=== PATIENT | male | born 1980 | race Caucasian/White ===

== ENCOUNTER 2016-09-15 17:41 | Emergency (ER) | payer MEDICAID ==
[2016-09-15 18:00] VITALS: PULSE 70; O2SAT 97
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
[2016-09-15 20:18] LABS: BASO # 0.1 K/uL (0.0-0.2); BASO % 1.1 % (0.0-2.0); EOS # 0.1 K/uL (0.0-0.7); EOS % 1.4 % (0.0-4.0); HEMATOCRIT 48.1 % (35.0-51.0); LYMPH # 1.6 K/uL (1.0-4.3); LYMPH % 19.7 % (20.0-40.0); MEAN CELL VOLUME 86.3 fL (80.0-94.0); MEAN CORPUSCULAR HEMOGLOBIN 29.7 pg (27.0-31.0); MEAN CORPUSCULAR HGB CONC 34.5 g/dL (33.0-37.0); MONO # 0.5 K/uL (0.0-0.8); NRBC % 0.2 % (0.0-2.0); RED CELL DISTRIBUTION WIDTH 13.4 % (11.5-14.5); WHITE BLOOD COUNT 8.1 K/uL (4.8-10.8)
[2016-09-15 20:19] LABS: CHLORIDE 100 mmol/L (98-107)
[2016-09-15 20:20] LABS: POTASSIUM 3.9 mmol/L (3.6-5.2); RBC URINE 1 /hpf (0-3); SODIUM 142 mmol/L (132-148); URINE BILIRUBIN NEGATIVE (NEGATIVE); URINE BLOOD NEGATIVE (NEGATIVE); URINE COLOR Yellow (YELLOW); URINE GLUCOSE (UA) NORMAL (Normal); URINE KETONE TRACE mg/dL (NEGATIVE); URINE LEUKOCYTE ESTERASE NEG Leu/uL (Negative); URINE PROTEIN NEGATIVE (NEGATIVE); URINE UROBILINOGEN NORMAL mg/dL (0.2-1.0); WBC URINE < 1 /hpf (0-5)
[2016-09-15 20:22] LABS: ALB/GLOB RATIO 1.5 (1.0-2.1); ALKALINE PHOSPHATASE 95 U/L (38-126); ALT/SGPT 48 U/L (21-72); AST/SGOT 26 U/L (17-59); BLOOD UREA NITROGEN 13 mg/dL (9-20); CARBON DIOXIDE 24 mmol/L (22-30); GFR AFRICAN-AMERICAN > 60; GLUCOSE,RANDOM 86 mg/dL (75-110); TOTAL PROTEIN 7.9 g/dL (6.3-8.3)
[2016-09-15 20:23] LABS: ALCOHOL SERUM < 10 mg/dl (0-10); CALCIUM 9.3 mg/dl (8.6-10.4)
[2016-09-15 23:01] VITALS: BP 127/73; RESP 16; TEMP 98.4
== END 2016-09-15 23:00 | disposition home or self-care (01) ==
LOC: C.ER 17:41
DX: R45.851 Suicidal ideations (principal)

== ENCOUNTER 2017-02-07 15:43 | Emergency (ER) | payer MEDICAID ==
[2017-02-07] MEDS ORDERED: Sodium Chloride 0.9% 1,000 ML IV ONE (16:32)
[2017-02-07] MEDS ORDERED: Apap-Butalbital-Caffeine 325-50-40mg Tab PO STA (16:34)
--- NOTE | 2017-02-07 16:43 | C.PDOC ---
History Of Present Illness Jerome Guzman, a 36 year old male, who has a past medical history of psychiatric illness presents to the ED complaining of a headache in the right occipital area x3 days. The patient states that he took multiple doses of tylenol and motrin without relief. The patient reports that he does not have a history of headaches. PMD: Dr. Solo Time Seen by Provider: 02/07/17 16:13 Chief Complaint (Nursing): Headache History Per: Patient History/Exam Limitations: no limitations Onset/Duration Of Symptoms: Days (x3 days) Current Symptoms Are (Timing): Still Present Quality: Pressure Associated Symptoms: Nausea Recent travel outside of the [place]: No Past Medical History Reviewed: Historical Data, Nursing Documentation, Vital Signs Vital Signs: Last Vital Signs Temp 98 F 02/07/17 15:47 Pulse 85 02/07/17 15:47 Resp 20 02/07/17 15:47 BP 132/71 02/07/17 15:47 Pulse Ox 96 02/07/17 17:37 - Medical History PMH: Back Problems, Bipolar Disorder, Depression, Schizophrenia Denies: Diabetes, Hepatitis, HIV, HTN, Seizures, Sexually Transmitted Disease Surgical History: No Surg Hx - [facility] Procedures APPLICATION OF SPLINT (04/12/14) Family History: States: Unknown Family Hx - Social History Hx Tobacco Use: Yes Hx Alcohol Use: No Hx Substance Use: Yes (MARIJUANA) - Immunization History Hx Tetanus Toxoid Vaccination: No Hx Influenza Vaccination: No Hx Pneumococcal Vaccination: No Review Of Systems Except As Marked, All Systems Reviewed And Found Negative. Constitutional: Negative for: Fever, Chills Neurological: Positive for: Headache (Headache in right occipital area.) Physical Exam - Physical Exam Appears: Well, Non-toxic, No Acute Distress Skin: Normal Color, Warm, Dry Eye(s): bilateral: Normal Inspection, PERRL, EOMI Ear(s): Bilateral: Normal Nose: Normal Oral Mucosa: Moist Tongue: Normal Appearing Lips: Normal Appearing Teeth: Normal Dentition Gingiva: Normal Appearing Throat: Normal Neck: Normal, Normal ROM, Supple Cardiovascular: Rhythm Regular, No Murmur Respiratory: Normal Breath Sounds, No Rales, No Rhonchi, No Wheezing Gastrointestinal/Abdominal: Normal Exam, Bowel Sounds, Soft, No Tenderness, No Guarding, No Rebound Back: Normal Inspection, No CVA Tenderness Extremity: Normal ROM, No Tenderness, No Deformity, No Swelling Neurological/Psych: Oriented x3, Normal Speech, Normal Cognition Gait: Steady ED Course And Treatment - Laboratory Results Result Diagrams: 02/07/17 16:58 02/07/17 16:58 Lab Interpretation: Normal O2 Sat by Pulse Oximetry: 96 (RA) Pulse Ox Interpretation: Normal - CT Scan/US No standard instances Other Rad Studies (CT/US): Read By Radiologist, Radiology Report Reviewed CT/US Interpretation: FINDINGS: HEMORRHAGE: No intracranial hemorrhage. BRAIN : No mass effect or edema. No atrophy or chronic microvascular ischemic changes. VENTRICLES: Unremarkable. No hydrocephalus. CALVARIUM: Unremarkable. PARANASAL SINUSES: Unremarkable as visualized. No significant inflammatory changes. MASTOID AIR CELLS: Unremarkable as visualized. No inflammatory changes. OTHER FINDINGS: None. IMPRESSION: No evidence of acute intracranial hemorrhage intracranial collection mass effect or midline shift. Significant interval change since the previous exam noted. Left frontal scalp soft tissue swelling. Progress Note: Treated with IVF NSS and fiorcet x 1. On re-evaluation feeling better, neuro intact. ambulating with steady gait Reassessment Condition: Improved Medical Decision Making Medical Decision Makin Initial Impression: 36 year old male presenting with right occipital headache Initial Plan: * CT head w/o contrast * Acetaminophen * CBC * NS 1000mls IV 1000mls/hr * Urinalysis * Reevaluation Disposition Counseled Patient/Family Regarding: Studies Performed, Diagnosis, Need For Followup, Rx Given - Disposition Referrals: Mansi Solo MD [Staff Provider] - Disposition: HOME/ ROUTINE Disposition Time: 18:00 Condition: STABLE Additional Instructions: fo;;ow up with PMD for further evaluation Prescriptions: Acetaminophen/Butalbital/Caf [Fioricet] 1 tab PO TID PRN #10 tab PRN Reason: Headache Instructions: General Headache (ED) Forms: [facility] (Bulgarian) - POA Present On Arrival: None - Clinical Impression Clinical Impression: Headache - Scribe Statement The provider has reviewed the documentation as recorded by the Scribnori Ray All medical record entries made by the Scribe were at my direction and personally dictated by me. I have reviewed the chart and agree that the record accurately reflects my personal performance of the history, physical exam, medical decision making, and the department course for this patient. I have also personally directed, reviewed, and agree with the discharge instructions and disposition.
[2017-02-07] MEDS ORDERED: Apap-Butalbital-Caffeine 325-50-40mg Tab ONE (16:59)
[2017-02-07] MEDS ORDERED: Sodium Chloride 0.9% 1,000 ML ONE (16:59)
[2017-02-07 17:01] LABS: BASO # 0.1 K/uL (0.0-0.2); BASO % 1.4 % (0.0-2.0); EOS # 0.1 K/uL (0.0-0.7); EOS % 1.1 % (0.0-4.0); HEMATOCRIT 46.3 % (35.0-51.0); LYMPH # 1.4 K/uL (1.0-4.3); LYMPH % 20.1 % (20.0-40.0); MEAN CORPUSCULAR HEMOGLOBIN 30.1 pg (27.0-31.0); MEAN CORPUSCULAR HGB CONC 34.6 g/dL (33.0-37.0); MEAN PLATELET VOLUME 9.3 fL (7.2-11.7); MONO # 0.6 K/uL (0.0-0.8); MONO % 8.4 % (0.0-10.0); NRBC % 0.1 % (0.0-2.0); RED CELL DISTRIBUTION WIDTH 13.9 % (11.5-14.5); WHITE BLOOD COUNT 7.2 K/uL (4.8-10.8)
[2017-02-07 17:12] LABS: RBC URINE < 1 /hpf (0-3); URINE BILIRUBIN NEGATIVE (NEGATIVE); URINE BLOOD NEGATIVE (NEGATIVE); URINE COLOR Yellow (YELLOW); URINE GLUCOSE (UA) NORMAL (Normal); URINE HYALINE CAST 0-2 /lpf (0-2); URINE KETONE NEGATIVE (NEGATIVE); URINE LEUKOCYTE ESTERASE NEG Leu/uL (Negative); URINE PROTEIN NEGATIVE (NEGATIVE); URINE UROBILINOGEN NORMAL mg/dL (0.2-1.0); WBC URINE < 1 /hpf (0-5)
[2017-02-07 17:17] LABS: CHLORIDE 100 mmol/L (98-107); POTASSIUM 4.4 mmol/L (3.6-5.2); SODIUM 140 mmol/L (132-148)
[2017-02-07 17:19] LABS: ALB/GLOB RATIO 1.4 (1.0-2.1); AST/SGOT 34 U/L (17-59); BILIRUBIN,TOTAL 0.8 mg/dL (0.2-1.3); CARBON DIOXIDE 28 mmol/L (22-30); GFR AFRICAN-AMERICAN > 60; TOTAL PROTEIN 7.3 g/dL (6.3-8.3)
[2017-02-07 17:20] LABS: ALKALINE PHOSPHATASE 92 U/L (38-126); ALT/SGPT 46 U/L (21-72); BLOOD UREA NITROGEN 13 mg/dL (9-20); CALCIUM 9.5 mg/dl (8.6-10.4); GLUCOSE,RANDOM 76 mg/dL (75-110)
--- NOTE | 2017-02-07 17:32 | CT ---
PROCEDURE: CT HEAD WITHOUT CONTRAST. HISTORY: R/O Bleed COMPARISON: Comparison is made to the previous study dated 03/30/2014 TECHNIQUE: Axial computed tomography images were obtained through the head/brain without intravenous contrast. Radiation dose: Total exam DLP = 981.98 mGy-cm. This CT exam was performed using one or more of the following dose reduction techniques: Automated exposure control, adjustment of the mA and/or kV according to patient size, and/or use of iterative reconstruction technique. FINDINGS: HEMORRHAGE: No intracranial hemorrhage. BRAIN: No mass effect or edema. No atrophy or chronic microvascular ischemic changes. VENTRICLES: Unremarkable. No hydrocephalus. CALVARIUM: Unremarkable. PARANASAL SINUSES: Unremarkable as visualized. No significant inflammatory changes. MASTOID AIR CELLS: Unremarkable as visualized. No inflammatory changes. OTHER FINDINGS: None. IMPRESSION: No evidence of acute intracranial hemorrhage intracranial collection mass effect or midline shift. Significant interval change since the previous exam noted. Left frontal scalp soft tissue swelling.
[2017-02-07 17:55] VITALS: BP 122/76; PULSE 75; RESP 18; TEMP 97.8; O2SAT 99
== END 2017-02-07 18:10 | disposition home or self-care (01) ==
LOC: C.ER 15:43
DX: R51 Headache (principal)
CPT/HCPCS: 70450; 80053; 80329; 81001; 85025; 96360; 99285; J7040

== ENCOUNTER 2017-08-04 11:51 | Emergency (ER) | payer MEDICAID ==
--- NOTE | 2017-08-04 14:59 | C.PDOC ---
History Of Present Illness 37 year old male presents to the ED for evaluation of generalized body aches, nausea, vomiting and dizziness which began several days ago. Patient reports he is currently nauseous and denies fever, chills, diarrhea, abdominal pain. Time Seen by Provider: 08/04/17 14:34 Chief Complaint (Nursing): Flu-like Symptoms History Per: Patient History/Exam Limitations: no limitations Onset/Duration Of Symptoms: Days Current Symptoms Are (Timing): Still Present Quality Of Discomfort: Aching Associated Symptoms: Nausea, Vomiting. denies: Fever, Chills, Diarrhea Additional History Per: Patient Past Medical History Reviewed: Historical Data, Nursing Documentation, Vital Signs Vital Signs: Last Vital Signs Temp 98.7 F 08/04/17 15:49 Pulse 64 08/04/17 15:49 Resp 18 08/04/17 15:49 BP 109/61 08/04/17 15:49 Pulse Ox 96 08/04/17 16:27 - Medical History PMH: Back Problems, Bipolar Disorder, Depression, Schizophrenia Denies: Diabetes, Hepatitis, HIV, HTN, Seizures, Sexually Transmitted Disease Surgical History: No Surg Hx - [facility] Procedures APPLICATION OF SPLINT (04/12/14) Family History: States: Unknown Family Hx - Social History Hx Tobacco Use: Yes Hx Alcohol Use: No Hx Substance Use: Yes (MARIJUANA) - Immunization History Hx Tetanus Toxoid Vaccination: No Hx Influenza Vaccination: No Hx Pneumococcal Vaccination: No Review Of Systems Constitutional: Negative for: Fever Gastrointestinal: Positive for: Nausea, Vomiting. Negative for: Abdominal Pain , Diarrhea Neurological: Positive for: Dizziness Physical Exam - Physical Exam Appears: Non-toxic, No Acute Distress Skin: Normal Color, Warm, Dry Head: Atraumatic, Normacephalic Eye(s): bilateral: Normal Inspection Ear(s): Bilateral: Normal Nose: Normal, No Discharge Oral Mucosa: Moist Neck: Supple Chest: Symmetrical, No Deformity, No Tenderness Cardiovascular: Rhythm Regular, No Murmur Respiratory: Normal Breath Sounds, No Rales, No Rhonchi, No Wheezing Gastrointestinal/Abdominal: Soft, No Tenderness, No Guarding, No Rebound Extremity: Normal ROM, Capillary Refill (less than 2 seconds ) Neurological/Psych: Oriented x3, Normal Speech, Normal Cognition ED Course And Treatment O2 Sat by Pulse Oximetry: 96 (on RA) Pulse Ox Interpretation: Normal Progress Note: Motrin PO and Zofran PO administered. Reevaluation Time: 16:26 Reassessment Condition: Improved (TOLERATING PO; REQUESTING DC HOME) Disposition Counseled Patient/Family Regarding: Diagnosis, Need For Followup, Rx Given - Disposition Referrals: YOUR,PMD [Other] Disposition: HOME/ ROUTINE Disposition Time: 16:25 Condition: IMPROVED Prescriptions: Ondansetron [Zofran Odt] 4 mg PO TID PRN #9 odt PRN Reason: Nausea/Vomiting Instructions: Acute Nausea and Vomiting (ED) Forms: [facility] (Swedish), Work Excuse - Clinical Impression Clinical Impression: Vomiting - Scribe Statement The provider has reviewed the documentation as recorded by the Scribe (Kiya Ramirez) Provider Attestation: All medical record entries made by the Scribe were at my direction and personally dictated by me. I have reviewed the chart and agree that the record accurately reflects my personal performance of the history, physical exam, medical decision making, and the department course for this patient. I have also personally directed, reviewed, and agree with the discharge instructions and disposition.
[2017-08-04 15:50] VITALS: BP 109/61; PULSE 64; RESP 18; TEMP 98.7
[2017-08-04 16:27] VITALS: O2SAT 96
== END 2017-08-04 16:56 | disposition home or self-care (01) ==
LOC: C.ER 11:51
DX: R11.10 Vomiting, unspecified (principal)

== ENCOUNTER 2018-04-15 10:39 | Emergency (ER) | payer MEDICAID ==
[2018-04-15 10:59] VITALS: BMI 34.4
[2018-04-15 11:07] VITALS: BP 127/82; PULSE 79; TEMP 98.5; O2SAT 98
[2018-04-15] MEDS ORDERED: Sodium Chloride 0.9% 1,000 ML IV ONE (11:21)
[2018-04-15] MEDS ORDERED: Apap-Butalbital-Caffeine 325-50-40mg Tab PO STA (11:22)
[2018-04-15] MEDS ORDERED: Apap-Butalbital-Caffeine 325-50-40mg Tab ONE (11:57)
--- NOTE | 2018-04-15 13:18 | C.PDOC ---
History Of Present Illness 37 y/o male presents to the ER complaining of right sided occipital headache since yesterday. Patient states that the pain has been occurring intermittently for the past 5 years, he reports that his current episode started yesterday. Patient notes that he took OTC Motrin with no significant relief. He has been evaluated for these symptoms in the past, however he never followed up with a specialist. Denies having visual changes, light sensation, changes in sensation, neck pain, nausea, and vomiting. Time Seen by Provider: 04/15/18 11:08 Chief Complaint (Nursing): Back Pain History Per: Patient History/Exam Limitations: no limitations Onset/Duration Of Symptoms: Days Current Symptoms Are (Timing): Still Present Severity: Moderate Past Medical History Reviewed: Historical Data, Nursing Documentation, Vital Signs Vital Signs: Last Vital Signs Temp 98.5 F 04/15/18 11:05 Pulse 79 04/15/18 11:05 Resp 18 04/15/18 11:05 BP 127/82 04/15/18 11:05 Pulse Ox 98 04/15/18 11:05 - Medical History PMH: Back Problems, Bipolar Disorder, Depression, Schizophrenia Denies: Diabetes, Hepatitis, HIV, HTN, Seizures, Sexually Transmitted Disease Surgical History: No Surg Hx - [facility] Procedures APPLICATION OF SPLINT (04/12/14) Family History: States: No Known Family Hx - Social History Hx Tobacco Use: Yes Hx Alcohol Use: Yes Hx Substance Use: Yes - Immunization History Hx Tetanus Toxoid Vaccination: No Hx Influenza Vaccination: Yes (2018) Hx Pneumococcal Vaccination: No Review Of Systems Except As Marked, All Systems Reviewed And Found Negative. Constitutional: Negative for: Fever, Chills Eyes: Negative for: Vision Change Gastrointestinal: Negative for: Nausea, Vomiting Musculoskeletal: Negative for: Neck Pain Neurological: Positive for: Headache Physical Exam - Physical Exam Appears: Non-toxic, No Acute Distress Skin: Normal Color, Warm, Dry Head: Normacephalic, Tenderness (tenderness to the right occipital scalp), Other ((+) left parietal 2 cm mobile mass, no swelling, no tenderness, no erythema - pt notes he has had it for "years") Eye(s): bilateral: Normal Inspection, PERRL, EOMI Ear(s): Bilateral: Normal Nose: Normal Oral Mucosa: Moist Throat: Normal, No Erythema, No Exudate Neck: Normal, Normal ROM, Supple Chest: Symmetrical Cardiovascular: Rhythm Regular Respiratory: Normal Breath Sounds, No Rales, No Rhonchi, No Wheezing Extremity: Normal ROM Neurological/Psych: Oriented x3, Normal Speech, Normal Cognition, Normal Cranial Nerves (2-12 grossly intact) Gait: Steady ED Course And Treatment O2 Sat by Pulse Oximetry: 98 (RA) Pulse Ox Interpretation: Normal - CT Scan/US CT-Head Other Rad Studies (CT/US): Read By Radiologist, Radiology Report Reviewed CT/US Interpretation: Date of service: 04/15/2018. PROCEDURE: CT HEAD WITHOUT CONTRAST. HISTORY: pain. COMPARISON: Noncontrast head CT performed 02/07/17. TECHNIQUE: Axial computed tomography images were obtained through the head/brain without intravenous contrast. Radiation dose: Total exam DLP = 1236.14 mGy-cm. This CT exam was performed using one or more of the following dose reduction techniques: Automated exposure control, adjustment of the mA and/or kV according to patient size, and/or use of iterative reconstruction technique. FINDINGS: HEMORRHAGE: No intracranial hemorrhage. BRAIN: No mass effect or edema. No atrophy or chronic microvascular ischemic changes. VENTRICLES: No hydrocephalus. CALVARIUM: Unremarkable. PARANASAL SINUSES: Unremarkable as visualized. No significant inflammatory changes. MASTOID AIR CELLS: Unremarkable as visualized. No inflammatory changes. OTHER FINDINGS: 17 x 11 mm left frontal parietal scalp abnormality, possibly age indeterminate hematoma. IMPRESSION: No acute intracranial pathology identified. Interval development of 17 x 11 mm left frontal parietal scalp abnormality, possibly age indeterminate hematoma. Correlate with physical exam and clinical history. Progress Note: Patient treated with Tylenol PO, Toradol IV, and IV Fluids. Prev ious visit evaluated, pt was seen for same symptoms last year. CT showing left parietal abnormality appears chronic and noninfectious. On reassessment, patient is resting comfortably, is tolerating PO, and pain has improved. Patient has no neurologic deficit, photophobia, rash, fever, or nuchal rigidity. Patient was instructed to follow up with physician/clinic in 1-2 days. Disposition - Disposition Referrals: Anatoly Armenta MD [Staff Provider] - Disposition: HOME/ ROUTINE Disposition Time: 13:24 Condition: STABLE Additional Instructions: Follow up with your primary medical doctor or clinic in 2-5 days for further evaluation. Take medications as prescribed. Return to the emergency department at any time if symptoms persist or worsen. 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 - Scribe Statement The provider has reviewed the documentation as recorded by the [place] Alfaro Provider Attestation All medical record entries made by the Suryaibnori were at my direction and personally dictated by me. I have reviewed the chart and agree that the record accurately reflects my personal performance of the history, physical exam, medical decision making, and the department course for this patient. I have also personally directed, reviewed, and agree with the discharge instructions and disposition.
[2018-04-15 13:47] VITALS: RESP 20
== END 2018-04-15 13:46 | disposition home or self-care (01) ==
LOC: C.ER 10:39
DX: R51 Headache (principal)
CPT/HCPCS: 70450; 96361; 96374; 99284; J1885; J7030

== ENCOUNTER 2018-06-07 14:14 | Emergency (ER) | payer MEDICAID ==
[2018-06-07 14:14] VITALS: BMI 34.4
[2018-06-07 14:34] VITALS: RESP 18
--- NOTE | 2018-06-07 15:40 | RAD ---
Date of service: 06/07/2018 HISTORY: cough r/o infiltrate COMPARISON: Chest 10/01/2013. TECHNIQUE: Chest PA and lateral FINDINGS: LUNGS: No active pulmonary disease. PLEURA: No significant pleural effusion identified. No pneumothorax apparent. CARDIOVASCULAR: No aortic atherosclerotic calcification present. Normal cardiac size. No pulmonary vascular congestion. OSSEOUS STRUCTURES: No significant abnormalities. VISUALIZED UPPER ABDOMEN: Normal. OTHER FINDINGS: None. IMPRESSION: No active disease.
[2018-06-07 16:32] VITALS: BP 122/74; PULSE 75; TEMP 98.7; O2SAT 97
--- NOTE | 2018-06-07 18:39 | C.PDOC ---
History Of Present Illness 38 y/o male presents to the ED complaining of bodyaches and cough for 2 days. He denies any fever, nausea, vomiting, or difficulty breathing. No recent travel. No sick contacts. Patient admits he did not receive flu shot this year. Patient is a non-smoker. Time Seen by Provider: 06/07/18 14:32 Chief Complaint (Nursing): Cough, Cold, Congestion History Per: Patient History/Exam Limitations: no limitations Onset/Duration Of Symptoms: Days (x2) Current Symptoms Are (Timing): Still Present Location Of Pain: Diffuse Myalgias Associated Symptoms: Cough, Sputum Past Medical History Reviewed: Historical Data, Nursing Documentation, Vital Signs Vital Signs: Last Vital Signs Temp 98.7 F 06/07/18 16:31 Pulse 75 06/07/18 16:31 Resp 18 06/07/18 16:31 BP 122/74 06/07/18 16:31 Pulse Ox 97 06/07/18 16:31 - Medical History PMH: Back Problems, Bipolar Disorder, Depression, Hypercholesterolemia, Schizophrenia Denies: Diabetes, Hepatitis, HIV, HTN, Seizures, Sexually Transmitted Disease Surgical History: No Surg Hx - [facility] Procedures APPLICATION OF SPLINT (04/12/14) Family History: States: Unknown Family Hx - Social History Hx Tobacco Use: Yes Hx Alcohol Use: Yes Hx Substance Use: Yes - Immunization History Hx Tetanus Toxoid Vaccination: No Hx Influenza Vaccination: Yes (2018) Hx Pneumococcal Vaccination: No Review Of Systems Except As Marked, All Systems Reviewed And Found Negative. Constitutional: Positive for: Other (Bodyaches). Negative for: Fever Cardiovascular: Negative for: Chest Pain Respiratory: Positive for: Cough. Negative for: Shortness of Breath, Wheezing Gastrointestinal: Negative for: Nausea, Vomiting Physical Exam - Physical Exam Appears: Non-toxic, No Acute Distress Skin: Normal Color, Warm, Dry Head: Atraumatic, Normacephalic Eye(s): bilateral: Normal Inspection, PERRL, EOMI Nose: Normal, No Discharge Oral Mucosa: Moist Neck: Normal ROM Chest: Symmetrical Cardiovascular: Rhythm Regular, No Murmur Respiratory: Normal Breath Sounds, No Rales, No Rhonchi, No Wheezing Gastrointestinal/Abdominal: Soft, No Tenderness, No Distention Extremity: Bilateral: Atraumatic, Normal Color And Temperature, Normal ROM Neurological/Psych: Oriented x3, Normal Speech ED Course And Treatment O2 Sat by Pulse Oximetry: 97 (RA) Pulse Ox Interpretation: Normal - Other Rad CXR X-Ray: Read By Radiologist Interpretation: Accession No. : [id number]. Patient Name / ID : FEMI ORTIZ / [id number]. Exam Date : 06/07/2018 14:38:49 ( Approved ). Study Comment : Sex / Age : M / 38Y. Creator : Cory Reid MD. Dictator : Cory Reid MD. Environmental Service Aide : Crystalizer Operator : Cory Reid MD. Approver2 : Report Date : 06/07/2018 15:37:07. My Comment : . Date of service: 06/07/2018. HISTORY: cough r/o infiltrate. COMPARISON: Chest 10/01/2013. TECHNIQUE: Chest PA and lateral. FINDINGS: LUNGS: No active pulmonary disease. PLEURA: No significant pleural effusion identified. No pneumothorax apparent. CARDIOVASCULAR: No aortic atherosclero tic calcification present. Normal cardiac size. No pulmonary vascular congestion. OSSEOUS STRUCTURES: No significant abnormalities. VISUALIZED UPPER ABDOMEN: Normal. OTHER FINDINGS: None. IMPRESSION: No active disease. Medical Decision Making Medical Decision Making: Impression: Cough, body aches, r/o pneumonia Initial Plan: --Chest X-Ray --Flu swab CXR is negative, discussed with patient. Counseled regarding likely viral etiology, encouraged symptomatic treatment. Patient will be discharged home with karma carranza. Disposition - [facility] - Disposition: HOME/ ROUTINE Disposition Time: 16:20 Condition: GOOD Additional Instructions: ANGEL KAHN, thank you for letting us take care of you today. The emergency medical care you received today was directed at your acute symptoms. If you were prescribed any medication, please fill it and take as directed. It may take several days for your symptoms to resolve. Return to the Emergency Department if your symptoms worsen, do not improve, or if you have any other problems. Please contact your doctor or call one of the physicians/clinics you have been referred to that are listed on the Patient Visit Information form that is included in your discharge packet. Bring any paperwork you were given at discharge with you along with any medications you are taking to your follow up visit. Our treatment cannot replace ongoing medical care by a primary care provider outside of the emergency department. Thank you for allowing the [facility] team to be part of your care today. Follow up with your primary care doctor in 2-3 days for re-evaluation and further management. Prescriptions: Benzonatate [Tessalon Perle] 100 mg PO Q8 PRN #15 capsule PRN Reason: Cough Instructions: Viral Syndrome (DC) Forms: [employer] ([place]) - Clinical Impression Clinical Impression: Viral syndrome - Scribe Statement The provider has reviewed the documentation as recorded by the [place] [facility] Provider Attestation: All medical record entries made by the Suryaibnori were at my direction and personally dictated by me. I have reviewed the chart and agree that the record accurately reflects my personal performance of the history, physical exam, medical decision making, and the department course for this patient. I have also personally directed, reviewed, and agree with the discharge instructions and disposition.
== END 2018-06-07 16:42 | disposition home or self-care (01) ==
LOC: C.ER 14:14
DX: B34.9 Viral infection, unspecified (principal)